=== PATIENT | female | born 1995 | race African-American/Black ===

== ENCOUNTER 2022-01-26 09:49 | Emergency (ER) | payer OTHER ==
[2022-01-26 09:54] VITALS: BMI 25.6
[2022-01-26 10:46] LABS: HCG,QUALITATIVE URINE Positive
[2022-01-26 10:49] LABS: EPI CELLS >36 /uL (0-25.1); HYALINE CASTS 0 /uL (0-3.1); URINE APPEARANCE CLOUDY; URINE BACTERIA 1299 /uL (0-1359); URINE BILIRUBIN NEGATIVE (NEGATIVE); URINE COLOR YELLOW; URINE GLUCOSE (UA) NEGATIVE (NEGATIVE); URINE KETONE NEGATIVE (NEGATIVE); URINE LEUK ESTERASE TRACE (NEGATIVE); URINE NITRITE NEGATIVE (NEGATIVE); URINE PROTEIN NEGATIVE (NEGATIVE); URINE RBC 4 /uL (0-23.9); URINE UROBILINOGEN 0.2 mg/dL (0.2-1.0); URINE WBC 46 /uL (0-25.8)
[2022-01-26 10:54] LABS: BASO % 0.4 % (0-2.0); EOS % 2.6 % (0-4.5); HEMATOCRIT 37.9 % (32.4-45.2); HEMOGLOBIN 12.5 GM/dL (10.7-15.3); LYMPH % 18.9 % (8-40); MCH 28.1 pg (25.7-33.7); MEAN CELL VOLUME 85.2 fl (80-96); MEAN PLT VOLUME 8.1 fl (7.5-11.1); MONO % 6.7 % (3.8-10.2); NEUT % 71.4 % (42.8-82.8); PLATELET COUNT 356 10^3/uL (134-434); RBC 4.45 M/mm3 (3.60-5.2); WHITE BLOOD COUNT 12.4 K/mm3 (4.0-10.0)
[2022-01-26 11:15] LABS: CALCIUM 9.9 mg/dL (8.5-10.1)
[2022-01-26 11:16] LABS: ALBUMIN 3.4 g/dl (3.4-5.0); BLOOD UREA NITROGEN 5.1 mg/dL (7-18)
[2022-01-26 11:19] LABS: CREATININE 0.6 mg/dL (0.55-1.3)
[2022-01-26 11:20] LABS: BILIRUBIN,TOTAL 0.3 mg/dL (0.2-1); TOT PROT 7.2 g/dl (6.4-8.2)
[2022-01-26 12:00] LABS: EPI CELLS >36 /uL (0-25.1); HYALINE CASTS 0 /uL (0-3.1); URINE APPEARANCE CLOUDY; URINE BACTERIA 2631 /uL (0-1359); URINE BILIRUBIN NEGATIVE (NEGATIVE); URINE COLOR YELLOW; URINE GLUCOSE (UA) NEGATIVE (NEGATIVE); URINE KETONE NEGATIVE (NEGATIVE); URINE LEUK ESTERASE 1+ (NEGATIVE); URINE NITRITE NEGATIVE (NEGATIVE); URINE PROTEIN NEGATIVE (NEGATIVE); URINE RBC 4 /uL (0-23.9); URINE UROBILINOGEN 0.2 mg/dL (0.2-1.0); URINE WBC 131 /uL (0-25.8)
[2022-01-26 16:58] VITALS: BP 95/62; PULSE 89; TEMP 98.1
== END 2022-01-26 17:21 | disposition home or self-care (01) ==
LOC: JER 09:49
DX: O26.892 Other specified pregnancy related conditions, second trimester (principal); R10.31 Right lower quadrant pain; N83.201 Unspecified ovarian cyst, right side; Z3A.17 17 weeks gestation of pregnancy
CPT/HCPCS: 36415; 74181-TC; 76815-TC; 76856-TC; 80053; 81003; 83690; 84702; 84703; 85025; 87086; 99285-25

== ENCOUNTER 2022-02-07 19:23 | Emergency (ER) | payer OTHER ==
[2022-02-07 19:29] VITALS: BP 116/78; PULSE 107; TEMP 97.6; BMI 26.4
[2022-02-07] MEDS ORDERED: ACETAMINOPHEN 325 MG TABLET (FP) PO ONE (20:13)
[2022-02-07] MEDS ORDERED: ACETAMINOPHEN 325 MG TABLET (FP) ONE (20:23)
== END 2022-02-07 21:08 | disposition home or self-care (01) ==
LOC: JER 19:23
DX: O26.892 Other specified pregnancy related conditions, second trimester (principal); K40.90 Unilateral inguinal hernia, without obstruction or gangrene, not specified as recurrent; R10.2 Pelvic and perineal pain; Z3A.19 19 weeks gestation of pregnancy
CPT/HCPCS: 99283-25

== ENCOUNTER 2022-02-22 08:45 | Inpatient (IN) | payer OTHER ==
[2022-02-22] MEDS ORDERED: LACTATED RINGERS SOLUTION 500 ML IV ONE (10:00)
[2022-02-22 11:11] VITALS: BMI 26.2
[2022-02-22 11:53] LABS: BASO % 0.6 % (0-2.0); EOS % 1.5 % (0-4.5); HEMATOCRIT 33.8 % (32.4-45.2); HEMOGLOBIN 11.4 GM/dL (10.7-15.3); LYMPH % 14.2 % (8-40); MCHC 33.8 g/dl (32.0-36.0); MEAN PLT VOLUME 8.1 fl (7.5-11.1); MONO % 7.1 % (3.8-10.2); NEUT % 76.6 % (42.8-82.8); PLATELET COUNT 345 10^3/uL (134-434); RBC 3.93 M/mm3 (3.60-5.2); RDW 13.8 % (11.6-15.6); WHITE BLOOD COUNT 13.3 K/mm3 (4.0-10.0)
[2022-02-22 12:00] LABS: INR 1.02 (0.83-1.09); PROTHROMBIN TIME (PATIENT) 11.7 SEC (9.7-13.0)
[2022-02-22 12:02] LABS: ACTIVATED PTT 25.2 SECONDS (25.2-36.5)
[2022-02-22] MEDS ORDERED: ELECTROLYTE-148 SOLN 1,000 ML IV SCH (12:15)
[2022-02-22 12:18] LABS: CALCIUM 9.1 mg/dL (8.5-10.1)
[2022-02-22 12:19] LABS: BLOOD UREA NITROGEN 6.2 mg/dL (7-18)
[2022-02-22 12:22] LABS: CREATININE 0.5 mg/dL (0.55-1.3)
[2022-02-22 13:34] VITALS: BP 102/66; PULSE 108; TEMP 98.1
[2022-02-22] MEDS ORDERED: OXYTOCIN 30 UNITS in 0.9% NS 30 UNIT/500 ML INFUS.BAG IVPB SCH (13:45)
== END 2022-02-22 13:35 | disposition short-term general hospital (02) | DRG 566 ==
LOC: JDEL 08:45 → JLDR 10:00
PROVIDERS: ADMIT Obstetrics & Gynecology; ATTEND Obstetrics & Gynecology
DX: O26.872 Cervical shortening, second trimester (principal); Z3A.21 21 weeks gestation of pregnancy
CPT/HCPCS: 36415; 59025; 80048; 85025; 85610; 85730; 86780; 86850; 86900; 86901; C9803-CS; U0003; U0005